=== PATIENT | male | born 1975 | race Caucasian/White ===

== ENCOUNTER 2017-07-16 16:48 | Emergency (ER) | payer SELFPAY ==
[2017-07-16] MEDS: KETOROLAC TROMETHAMINE 60 MG/2 ML VIAL IM ONE (17:48)
--- NOTE | 2017-07-16 17:50 | ED Physician Documentation ---
Upper Extremity Injury - HISTORIAN Historian: patient - HPI Stated Complaint: Right Forearm Pain Chief Complaint: Upper Extremity Problem Severity: moderate Context: denies: fall, blow, incision, crush, burn Further Comments: yes (42 year old male patient presents with complaints of right forearm pain. Denies injury, fall, bite or previous symptoms.) - ROS CONST: no problems CVS/RESP: none NEURO: none MS/SKIN/LYMPH: none GI/: denies: nausea, vomiting - PAST HX Past History: Rt handed Allergies/Adverse Reactions: Allergies Allergy/AdvReac Type Severity Reaction Status Date / Time hydroxyzine HCl Allergy Verified 07/16/17 16:56 [From Vistaril] hydroxyzine pamoate Allergy Verified 07/16/17 16:56 [From Vistaril] meperidine HCl [From Demerol] Allergy Verified 07/16/17 16:56 Sulfa (Sulfonamide Allergy Verified 07/16/17 16:56 Antibiotics) Home Medications: Ambulatory Orders Medication Instructions Recorded Ketorolac Tromethamine [Toradol] 10 mg PO TID #15 tablet 07/16/17 - SOCIAL HX Smoking History: cigarettes - FAMILY HX Family History: denies: none - VITAL SIGNS Vital Signs: Vital Signs Temp Pulse Resp BP Pulse Ox 98 F 78 18 110/68 97 07/16/17 16:50 07/16/17 18:04 07/16/17 18:04 07/16/17 18:04 07/16/17 18:04 - REVIEWED ASSESSMENTS Nursing Assessment Reviewed: Yes Vitals Reviewed: Yes Progress - Progress Progress: edema and pain treated in ER with toradol. ED Results Lab/Radiology - Radiology Radiology Impressions: Examination: Plain film forearm History: Swelling Comparison exams: None available Findings: 2 views of the radius and ulna demonstrates normal cortical margins. No evidence for fracture line. No soft tissue abnormality. Impression: No acute osseous abnormality. Electronically signed on Jul 16, 2017 5:15:16 PM DESIGN SPECIALIST by: Alberto Morales - Orders Orders: ED Orders Category Date Time Status FOREARM 2 VIEWS [RAD] Stat Exams 07/16/17 Completed Ketorolac Tromethamine [Toradol] Med 07/16/17 17:48 Discontinued 60 mg IM NOW ONE Upper Extremity Injury Physic - Physical Exam General Appearance: mild distress Hand: normal inspection, non-tender, no evidence of injury, normal ROM Wrist: normal inspection, non-tender, no evidence of injury, normal ROM Elbow/Forearm: no evidence of injury, soft tissue tenderness (right medial forearm; mild edema noted, crepitus noted at area of edema. ). No: abrasions, deformity Shoulder: normal inspection, non-tender, no evidence of injury, normal ROM Neuro/Vascular/Tendon: no vascular compromise, motor nml, sensation nml, ROM nml Skin: warm,dry Resp/CVS: chest non-tender, breath sounds nml, heart sounds nml, no resp. distress, lungs clear, reg. rate & rhythm Discharge Clincal Impression: Edema of right forearm Prescriptions: Ketorolac Tromethamine [Toradol] 10 mg PO TID #15 tablet Additional Instructions: Ice Rest Elevation If you are unable continuing to have significant pain on day 3-4; see your PCP for re-evaluation and additional xrays. You may use Tylenol every 4hour as needed for pain. Limit your dose to less than 4 G per day. Do not take ibuprofen, aleve, naproxen or any other NSAID while you are on toradol. You may want to try massage, over the counter lidocaine patches, biofreeze, landon kaplan or aspercream . Condition: Stable Disposition: 01 HOME, SELF-CARE Decision to Admit: NO Decision Time: 17:52
[2017-07-16 18:05] VITALS: BP 110/68
--- NOTE | 2017-07-16 18:50 | Diagnostic Imaging Report ---
ALAV DICKERSON (CLEMENCIA) - ER~ [facility] [address] [address] ~ ~ ~ ~ Report Submission Date: Jul 16, 2017 5:15:16 PM VP GENETIC Patient ~ Study Name: LISE SANTOS ~ Date: Jul 16, 2017 5:01:42 PM VP GENETIC ~ Modality Type: CR Gender: M ~ Description: UPPER EXTREMITY : 75 ~ Institution: [facility] Physician: ALVA DICKERSON) - ER ~ ~ ~ Examination: Plain film forearm History: Swelling Comparison exams: None available Findings: 2 views of the radius and ulna demonstrates normal cortical margins. No evidence for fracture line. No soft tissue abnormality. Impression: No acute osseous abnormality. ~ Electronically signed on Jul 16, 2017 5:15:16 PM VP GENETIC by: Alberto CHU
== END 2017-07-16 18:04 | disposition home or self-care (01) ==
LOC: ED 16:48
DX: M79.89 Other specified soft tissue disorders (principal); M79.601 Pain in right arm
CPT/HCPCS: 73090; 96372; 99283; J1885

== ENCOUNTER 2017-12-01 12:11 | Emergency (ER) | payer SELFPAY ==
--- NOTE | 2017-12-01 12:15 | ED Physician Documentation ---
Eye Problem - HISTORIAN Historian: patient - HPI Stated Complaint: Bloody eye Chief Complaint: Eye Problems Onset: days ago (2) Associated symptoms: redness Location: right eye Severity: other (no pain, no loss of vision, no injury ) Apparent Injury: no Context: denies: foreign body, direct trauma, projectile injury, penetration injury, chemical exposure, exposure to welding arc, tanning booths, wearing glasses, contact lenses, sick contact, pink eye Where: home - ROS CONST: no problems CVS/RESP: none EYES/ENT: none NEURO: denies: headache - PAST HX Past History: none Immunizations: UTD Allergies/Adverse Reactions: Allergies Allergy/AdvReac Type Severity Reaction Status Date / Time hydroxyzine HCl Allergy Verified 12/01/17 12:15 [From Vistaril] hydroxyzine pamoate Allergy Verified 12/01/17 12:15 [From Vistaril] meperidine HCl [From Demerol] Allergy Verified 12/01/17 12:15 Sulfa (Sulfonamide Allergy Verified 12/01/17 12:15 Antibiotics) Home Medications: Ambulatory Orders Medication Instructions Recorded NK [NK] 12/01/17 - SOCIAL HX Smoking History: cigarettes Alcohol Use: none Drug Use: none - FAMILY HX Family History: none - VITAL SIGNS Vital Signs: Vital Signs Temp Pulse Resp BP Pulse Ox 98.2 F 111 H 19 119/74 96 12/01/17 12:12 12/01/17 12:12 12/01/17 12:12 12/01/17 12:12 12/01/17 12:12 - REVIEWED ASSESSMENTS Nursing Assessment Reviewed: Yes Vitals Reviewed: Yes Progress - Progress Progress: 1253: after a return call from [facility] - pt needs to be seen at the ER in [place]. Transfer will be started DG [id number] will accept the pt in the clinic not the ER DG Eye Problem Physical Exam - Physical Exam General Appearance: no acute distress, alert Examined with Slit Lamp: No Eyelids: erythema (R) Conjunctiva and Sclera: subconjunctival hemorrhage (R), other (blood drops from the eye ) Corneas: nml inspection EOM: intact Pupils: equal Head/ENT: nml inspection Skin: nml color Neck/Back: nml inspection Respiratory: no resp distress, chest non-tender, breath sounds normal CVS: reg rate & rhythm, heart sounds normal, equal pulses, no murmur Abdomen: non-tender, no organomegaly, nml bowel sounds, no distention Neuro/Psych: oriented x3, neuro intact, mood/affect nml Discharge Clincal Impression: Eye hemorrhage Referrals: Primary Doctor,No [Primary Care Provider] - 2 Days Comments: 1. He is going straight to the [facility] Condition: Stable Decision to Admit: NO Date of Decison to Admit: 12/01/17 Decision Time: 12:41
[2017-12-01 12:30] VITALS: BP 119/74
[2017-12-01 12:35] LABS: BASOPHILS % 0.4 (0.0-1.5); EOSINOPHILS % 1.9 % (0.0-6.8); MEAN CORPUSCULAR HEMOGLOBIN 30.5 pg (28.0-34.0); MEAN CORPUSCULAR VOLUME 92.1 fl (80.0-100.0); MONOCYTES % 4.9 % (0.0-11.0); NEUTROPHILS # 5.4 # k/uL (1.4-7.7)
[2017-12-01 12:50] LABS: eGFR (African) > 60; eGFR (Non-African) > 60
== END 2017-12-01 13:40 | disposition short-term general hospital (02) ==
LOC: ED 12:11
DX: H11.31 Conjunctival hemorrhage, right eye (principal)
CPT/HCPCS: 80053; 85025; 85610; 99285